=== PATIENT | female | born 1965 | race Caucasian/White ===

== ENCOUNTER 2021-01-23 01:42 | Outpatient (CLI) | payer OTHER, SELFPAY ==
--- NOTE | 2021-01-23 12:40 | DI.MAMMO_ITS ---
Exam(s) MAMMO SCREENING EXAM: MAMMO SCREENING CLINICAL HISTORY: SCREENING, Z12.39. TECHNIQUE: Bilateral full field digital CC and MLO mammographic images were obtained with 3D tomosyn thesis and utilizing computer aided detection (CAD). COMPARISON: None. Apparently prior outside mammograms are not available for comparison. This patient apparently has no breast complaints FINDINGS: There are no CAD designations There are no obvious spiculated masses nor malignant-appearing microcalcification groups in either br east. There is no significant architectural distortion nor skin thickening-retraction. IMPRESSION: No radiographic evidence of malignancy. BI-RADS Category 1 - Negative Breast Density - Category B - Scattered areas of fibroglandular density Breast density Category C or D implies that the patient has dense breast tissue. Dense breast tissue can make it harder to find cancer on a mammogram. Dense breast tissue is also associated with an incr eased risk of breast cancer. This information about the result of the mammogram report was provided to the patient to raise their awareness. Use this report when you speak with the patient about their risks for breast cancer, which includes their family history. At that time, you may recommend additional screening tests (Ultrasoun d or MRI) as these tests may add significant information. A negative radiographic report should not delay biopsy if a dominant or clinically suspicious mass is present. Up to ten percent of cancers are not identified on mammography. A negative report may reinforce clinical impression. Adenosis and dense breasts may obscure an underlying neoplasm. False positive reports average 6 to 10%. Patient will receive a letter notifying them of these results.
== END 2021-01-23 02:02 ==
PROVIDERS: Visit Provider Physician Assistant
DX: Z12.31 Encounter for screening mammogram for malignant neoplasm of breast (principal)
CPT/HCPCS: 77063; 77067

== ENCOUNTER 2021-03-30 09:29 | Outpatient (REF) | payer OTHER, SELFPAY ==
[2021-03-31 17:25] LABS: COVID-19 RT-PCR UVMMC Result Negative (Negative)
== END 2021-03-30 09:30 | disposition home or self-care (01) ==
LOC: LBN 09:29
PROVIDERS: Visit Provider Nurse Practitioner Family
DX: Z20.822 Contact with and (suspected) exposure to COVID-19 (principal); R05.8 Other specified cough
CPT/HCPCS: U0003

== ENCOUNTER 2023-07-14 15:56 | Outpatient (CLI) | payer OTHER, SELFPAY ==
--- NOTE | 2023-07-14 14:30 | DI.RAD_ITS ---
Exam(s) XR SHOULDER LT COMPLETE 2+V EXAM: XR SHOULDER LT COMPLETE 2+V CLINICAL HISTORY: LEFT SHOULDER PAIN. TECHNIQUE: 2D digital imaging was performed. COMPARISON: No exams were available for comparison FINDINGS: Two views. No evidence of fracture or dislocation nor obvious degenerative changes in the glenohumeral joint. T here is a 3 millimeter calcific density in the soft tissues just above the greater tuberosity consist ent with calcific rotator cuff tendinitis. The subacromial space itself is not diminished. There ar e some degenerative changes in the AC joint. IMPRESSION: Calcific rotator cuff tendinitis as described above. DATA REPOSITORY: RADIATION DOSE DELIVERED:
== END 2023-07-14 15:57 | disposition home or self-care (01) ==
LOC: DIORS 15:56
PROVIDERS: PCP Family Medicine; Visit Provider Student in an Organized Health Care Education/Training Program
DX: M25.512 Pain in left shoulder (principal)
CPT/HCPCS: 73030

== ENCOUNTER → 2023-08-10 03:38 | Outpatient (CLI) | payer OTHER, SELFPAY ==
--- NOTE | 2023-08-10 07:30 | DI.MRI_ITS ---
Exam(s) MR UPPER JOINT LT WO EXAM: MR UPPER JOINT LT WO CLINICAL HISTORY: PAIN,lt rotator cuff tear,impingement,tendinitis lt rotator cuff,m25.812,. TECHNIQUE: Multiplanar multisequence MRI was performed. COMPARISON: CR XR SHOULDER LT COMPLETE 2+V from 07/14/2023 FINDINGS: BONES: There is no fracture or contusion pattern. JOINTS: There are mild degenerative changes seen at the acromioclavicular joint. The glenohumeral augusto int is normal. No joint effusion. TENDONS: Supraspinatus: Mild tendinosis. No evidence of a tear. Infraspinatus: Unremarkable. Subscapularis: There is supraspinatus tendinosis but no evidence of a tear. Teres Minor: Unremarkable. Biceps and [place]: Unremarkable. MUSCLES: Unremarkable. GLENOID LABRUM: Unremarkable on this noncontrast examination. SOFT TISSUES: Unremarkable. LIGAMENTS: Unremarkable. OTHER: Subacromial and subdeltoid bursae are unremarkable. IMPRESSION: 1. Tendinosis of the supraspinatus and subscapularis tendons without evidence of a tear. 2. Mild degenerative changes seen at the acromioclavicular joint. DATA REPOSITORY:
== END ==
PROVIDERS: PCP Family Medicine; Visit Provider Student in an Organized Health Care Education/Training Program
DX: M25.812 Other specified joint disorders, left shoulder; M75.82 Other shoulder lesions, left shoulder
CPT/HCPCS: 73221

== ENCOUNTER 2024-04-11 13:12 | Outpatient (CLI) | payer OTHER, SELFPAY ==
[2024-04-11 12:30] LABS: Abs Immature Grans 0.03 10^3/uL (0.0-0.06); Absolute Basophil Count 0.04 10^3/uL (0.0-0.2); Absolute Eosinophil Count 0.23 10^3/uL (0.0-0.7); Absolute Lymphocyte Count 2.44 10^3/uL (1.2-3.4); Absolute Monocyte Count 0.34 10^3/uL (0.1-0.8); Absolute Neutrophil Count 4.83 10^3/uL (1.2-6.7); Basophils % 0.5 %; Eosinophils % 2.9 %; HGB 12.4 g/dL (11.2-15.7); Immature Grans % 0.4 %; Lymphocytes % 30.8 %; MCH 28.4 pg (27.0-33.0); MCHC 33.5 % (32.0-36.0); MCV 85 fL (80-95); MPV 10.1 fL (8.0-11.0); Monocytes % 4.3 %; Neutrophils % 61.1 %; Platelet Count 183 10^3/uL (130-400); RBC 4.36 10^6/uL (3.93-5.22); RDW 12.5 % (11.7-14.6); RDW-SD 38.5 fL; WBC 7.91 10^3/uL (4.4-10.8)
[2024-04-11 12:53] LABS: Hemoglobin A1C 5.8 % (<5.7)
[2024-04-11 13:03] LABS: ALT 13 U/L (14-59); AST 11 U/L (15-37); Albumin 3.8 g/dL (3.4-5.0); Alkaline Phosphatase 92 U/L (46-116); Anion Gap 5.6 mmol/L (3-11); BUN 10 mg/dL (7-18); Bilirubin, Total 0.25 mg/dL (0.2-1.0); CO2 30.4 mmol/L (21.0-32.0); CREATININE 0.9 mg/dL (0.55-1.02); Chloride 107 mmol/L (98-107); Estimated GFR 74.57 (mL/min/1.73m2); Glucose 127 mg/dL (74-106); Potassium 4.1 mmol/L (3.5-5.1); Sodium 143 mmol/L (136-145)
--- OUTSIDE RECORDS SUMMARY | 2024-04-11 13:14 | XMS_ITS | Continuity of Care Document ---
Author Organization [facility] Address [address] [place] [address] Care Team Providers Care Instructor Substitute Cosmetology Name Role Phone Ingrid [facility]OSPIT[facility] Primary Care Physician Encounter [facility] Date[facility]s): 07/10/23 - 07/10/23 [facility] [address] [place] [address] Encounter Diagnosis Type II diabetes mellitus uncontrolled(Discharge Diagnosis) - 07/10/23 Discharge Disposition: Home or Self Care Attending Physician: Te Pat NP Admitting Physician: Te Pat NP Referring Physician: Te Pat NP Allergies, Adverse Reactions, Alerts No Known Medication Allergies Substance Reaction Severity Status metFORMIN Mild Active Assessment and Plan Future Appointments Diagnostic Tests Pending * Hemoglobin A1c 07/10/23 Future Scheduled Tests Laboratory* Hemoglobin A1c 12/26/22 Immunizations Given and Recorded Vaccine Date Status Refusal Reason zoster vaccine, inactivated 1 05/20/21 Recorded zoster vaccine, inactivated 2 01/16/21 Recorded influenza virus vaccine, live 3 03/11/21 Recorded influenza virus vaccine, live 4 01/24/19 Recorded tetanus/diphth/pertuss (Tdap) adult/adol 5 01/16/21 Recorded SARS-CoV-2 (COVID-19) mRNA-1273 vaccine 08/12/20 R ecorded SARS-CoV-2 (COVID-19) mRNA-1273 vaccine 07/15/20 R ecorded 1Result Comment: Verified by MAGALIS and ANDERSON. Patient tolerated injection and bandaid applied. Diluent Lot# [id number] 2Result Comment: pt. tolerated vaccine well; diluent lot#[id number] 3Result Comment: Verified by RS and GGJ. Patient tolerated injection; bandaid applied. 4Result Comment: pt. tolerated vaccine well 5Result Comment: pt. tolerated vaccine well Medications Abilify 10 mg oral tablet 10 mg = 1 tab, Oral, Daily, # 30 tab, 2 Refill(s), Pharmacy: [facility] [address], 162.56, cm, 10/08/21 15:48:00 EDT, Height, 65, kg, 04/24/23 10:30:00 EST, Weight Dosing Start Date: 06/03/23 Stop Date: 09/01/23 Status: Ordered Abilify 5 mg oral tablet 5 mg = 1 tab, Oral, Daily, # 30 tab, 2 Refill(s), Pharmacy: [facility] [address], 162.56, cm, 10/08/21 15:48:00 EDT, Height, 65, kg, 04/24/23 10:30:00 EST, Weight Dosing Start Date: 06/03/23 Stop Date: 09/01/23 Status: Ordered buPROPion 150 mg/24 hours (XL) oral tablet, extended release 150 mg 1 tab, Oral, every morning, # 30 tab, 2 Refill(s), Pharmacy: [facility] [address], 162.56, cm, 10/08/21 15:48:00 EDT, Height, 65, kg, 04/24/23 10:30:00 EST, Weight Dosing Start Date: 06/03/23 Stop Date: 09/01/23 Status: Ordered buPROPion 300 mg/24 hours (XL) oral tablet, extended release 300 mg = 1 tab, Oral, every morning, # 30 tab, 2 Refill(s), Pharmacy: [facility] [address], 162.56, cm, 10/08/21 15:48:00 EDT, Height, 65, kg, 04/24/23 10:30:00 EST, Weight Dosing Start Date: 06/03/23 Stop Date: 09/01/23 Status: Ordered citalopram 10 mg oral tablet 10 mg = 1 tab, Oral, Daily, take at noon, with citalopram 20 mg daily, # 30 tab, 2 Refill(s), Pharmacy: [facility] [address], 162.56, cm, 10/08/21 15:48:00 EDT, Height, 65, kg, 04/24/23 10:30:00 EST, Weight Dosing Start Date: 06/03/23 Stop Date: 09/01/23 Status: Ordered citalopram 20 mg oral tablet 20 mg = 1 tab, Oral, every morning, # 30 tab, 2 Refill(s), Pharmacy: [facility] [address], 162.56, cm, 10/08/21 15:48:00 EDT, Height, 65, kg, 04/24/23 10:30:00 EST, Weight Dosing Start Date: 06/03/23 Stop Date: 09/01/23 Status: Ordered clonazePAM 0.5 mg oral tablet 0.5 mg = 1 tab, Oral, Daily, PRN anxiety, # 14 tab, 1 Refill(s), Pharmacy: [place] [facility] [address], 162.56, cm, 10/08/21 15:48:00 EDT, Height, 65, kg, 04/24/23 10:30:00 EST, Weight Dosing Start Date: 06/03/23 Stop Date: 07/01/23 Status: Ordered clonazePAM 1 mg oral tablet 1 mg = 1 tab, Oral, Daily, PRN other (see comment), as needed, # 28 tab, 2 Refill(s), Pharmacy: [place] [facility] [address], 162.56, cm, 10/08/21 15:48:00 EDT, Height, 65, kg, 04/24/23 10:30:00 EST, Weight Dosing Start Date: 06/29/23 Stop Date: 09/21/23 Status: Ordered lamoTRIgine 100 mg oral tablet 100 mg = 1 tab, Oral, Daily, # 30 tab, 2 Refill(s), Pharmacy: [place] [facility] [id number], 162.56, cm, 10/08/21 15:48:00 EDT, Height, 65, kg, 04/24/23 10:30:00 EST, Weight Dosing Start Date: 06/03/23 Stop Date: 09/01/23 Status: Ordered ONE TOUCH ULTRA TEST STRIPS ONE TOUCH ULTRA TEST STRIPS, Test sugars twice daily. E11.9 Diabetes., Supply, See instructions, # 200 EA, 3 Refill(s), Pharmacy: [id number] Start Date: 12/10/22 Status: Ordered Rybelsus 7 mg oral tablet 7 mg = 1 tab, Oral, Daily, take at least 30 minutes before first food, beverage, or other oral meds, # 90 tab, 0 Refill(s), Pharmacy: [facility], 162.56, cm, 10/08/21 15:48:00 EDT, Height, 65, kg, 04/24/23 10:30:00 EST, Weight Dosing Start Date: 05/06/23 Status: Ordered traZODone 100 mg oral tablet 100 mg = 1 tab, Oral, every night at bedtime, PRN as need for sleep, # 30 tab, 2 Refill(s), Pharmacy: [id number], 162.56, cm, 10/08/21 15:48:00 EDT, Height, 65, kg, 04/24/23 10:30:00 EST, Weight Dosing Start Date: 05/19/23 Stop Date: 08/17/23 Status: Ordered Problem List Condition Confirmation Course Effective Dates Status H ealth Status Informant Anemia Confirmed Active Attention deficit hyperactivity disorder Confirmed 06/01/19 Active Back pain Confirmed Active Bipolar disorder Confirmed 10/08/17 Active Fatigue Confirmed Active Insomnia Confirmed 03/10/18 Active Menopause Confirmed 01/16/21 Active Pain of right shoulder joint Confirmed 12/13/19 Active Encounter for medication management Confirmed Active Right bundle branch block Confirmed 07/21/19 Active Severe anxiety (panic) Confirmed 05/21/21 Active Tremor Confirmed 06/06/19 Active Type II diabetes mellitus uncontrolled Confirmed 07/21/19 Active Social History Social History Type Response Tobacco Never tobacco user T obacco Use:. Sex Female Patient Care team information Care Team Personnel Name: Lee Sheehan DO Position: PowerChart View Only Member Role: Informed Provider Address: Address: [place] [facility] [id number] [place] [address]
--- OUTSIDE RECORDS SUMMARY | 2024-04-11 13:15 | XMS_ITS | Continuity of Care Document ---
Author Organization [facility] Address [address] [place] [address] Care Team Providers Care Bead Inspector Name Role Phone Lee Sheehan Primary Care Physician [phone] Encounter [facility] Date(s): 04/24/23 - 04/24/23 [facility] [address] [place] [address] Encounter Diagnosis Type II diabetes mellitus uncontrolled(Discharge Diagnosis) - 04/24/23 Encounter for medication management(Discharge Diagnosis) - 04/24/23 Back pain(Discharge Diagnosis) - 04/24/23 Severe anxiety (panic)(Discharge Diagnosis) - 04/24/23 Discharge Disposition: Home or Self Care Attending Physician: Jacquelyn Phillips NP Admitting Physician: Jacquelyn Phillips NP Referring Physician: Jacquelyn Phillips NP Allergies, Adverse Reactions, Alerts No Known Medication Allergies Substance Reaction Severity Status metFORMIN Mild Active Assessment and Plan Future Appointments Future Scheduled Tests Laboratory* Hemoglobin A1c 12/26/22 [...] lot#[id number] 3Result Comment: Verified by RS and JOEYJ. Patient tolerated injection; bandaid applied. 4Result Comment: pt. tolerated vaccine well 5Result Comment: pt. tolerated vaccine well Medications Abilify 10 mg oral tablet 10 mg = 1 tab, Oral, Daily, # 30 tab, 2 Refill(s), Pharmacy: [facility] Start Date: 02/18/23 Stop Date: 05/19/23 Status: Ordered Abilify 5 mg oral tablet 5 mg = 1 tab, Oral, Daily, # 30 tab, 2 Refill(s), Pharmacy: [id number] Start Date: 02/18/23 Stop Date: 05/19/23 Status: Ordered buPROPion 150 mg/24 hours (XL) oral tablet, extended release 150 mg 1 tab, Oral, every morning, # 30 tab, 2 Refill(s), Pharmacy: [id number] Start Date: 02/18/23 Stop Date: 05/19/23 Status: Ordered buPROPion 300 mg/24 hours (XL) oral tablet, extended release 300 mg = 1 tab, Oral, every morning, # 30 tab, 2 Refill(s), Pharmacy: [facility] Start Date: 02/18/23 Stop Date: 05/19/23 Status: Ordered citalopram 20 mg oral tablet 20 mg = 1 tab, Oral, every morning, # 30 tab, 2 Refill(s), Pharmacy: [facility] Start Date: 02/18/23 Stop Date: 05/19/23 Status: Ordered clonazePAM 0.5 mg oral tablet 0.5 mg = 1 tab, Oral, Daily, PRN anxiety, # 14 tab, 1 Refill(s), Pharmacy: [facility] Start Date: 02/18/23 Stop Date: 03/18/23 Status: Ordered clonazePAM 1 mg oral tablet 1 mg = 1 tab, Oral, Daily, PRN other (see comment), as needed, # 28 tab, 2 Refill(s), Pharm[facility]: [id number] Start Date: 02/18/23 Stop Date: 05/13/23 Status: Ordered FeroSul 325 mg (65 mg elemental iron) oral tablet 0 Refill(s) Start Date: 07/18/22 Status: Ordered lamoTRIgine 100 mg oral tablet 100 mg = 1 tab, Oral, Daily, # 30 tab, 2 Refill(s), Pharmacy: [facility] Start Date: 02/18/23 Stop Date: 05/19/23 Status: Ordered ONE TOUCH ULTRA TEST STRIPS ONE TOUCH ULTRA TEST STRIPS, Test sugars twice daily. E11.9 Diabetes., Supply, See instructions, # 200 EA, 3 Refill(s), Pharmacy: [facility] Start Date: 12/10/22 Status: Ordered traZODone 100 mg oral tablet 100 mg = 1 tab, Oral, every night at bedtime, PRN as need for sleep, # 30 tab, 2 Refill(s), Pharmacy: [facility], 162.56, cm, 10/08/21 15:48:00 EDT, Height Start Date: 02/23/23 Stop Date: 05/24/23 Status: Ordered Problem List Condition Confirmation Course [...] II diabetes mellitus uncontrolled Confirmed 07/21/19 Active Results Laboratory List Name Date Comprehensive Metabolic Panel (CMP) 03/28 01/17 Hemoglobin A1c 04/24/23 Most recent to oldest [Reference Range]: 1 BUN [7-18 mg/dL] 9 mg/dL (04/24/23 11:00 AM) Glucose Level [74-106 mg/dL] 120 mg/dL *HI* (04/24/23 11:00 AM) Potassium Level [3.5-5.1 mmol/L] 4.2 mmo l/L (04/24/23 11:00 AM) AST [15-37 unit/L] 11 unit/L *LOW* (04/24/23 11:00 AM) ALT [14-59 unit/L] 19 unit/L (04/24/23 11:00 AM) Sodium Level [136-145 mmol/L] 140 mmol/L (04/24/23 11:00 AM) Calcium Level [8.5-10.1 mg/dL] 9.4 mg/dL (04/24/23 11:00 AM) Albumin Level [3.4-5.0 g/dL] 3.6 g/dL (04/24/23 11:00 AM) Protein Total [6.4-8.2 g/dL] 6.9 g/dL (04/24/23 11:00 AM) Bilirubin Total [0.2-1.0 mg/dL] 0.3 mg/d L (04/24/23 11:00 AM) Alk Phos [46-146 unit/L] 68 unit/L (04/24/23 11:00 AM) CO2 [21-32 mmol/L] 30 mmol/L (04/24/23 11:00 AM) eGFR Non-AA [>=60] 74 (04/24/23 11:00 AM) eGFR AA [>=60] 74 (04/24/23 11:00 AM) Hemoglobin A1c [4.0-6.0 %] 5.9 % (04/24/23 11:00 AM) Chloride Level [98-107 mmol/L] 103 mmol/ L (04/24/23 11:00 AM) Creatinine Level [0.55-1.02 mg/dL] 0.91 mg/dL (04/24/23 11:00 AM) Social History Social History Type Response Tobacco Never tobacco user T obacco Use:. Sex Female Patient Care team information Care Team Personnel Name: Lee Sheehan DO Position: PowerChart View Only Member Role: Informed Provider Address: Address: [place] [facility] [address]
--- OUTSIDE RECORDS SUMMARY | 2024-04-11 13:15 | XMS_ITS | Continuity of Care Document ---
Author Organization [facility] Address [address] [place] [address] Care Team Providers Care Aed Trainer Name Role Phone Lee Quintero Primary Care Physician [facility] Date[facility]s): [facility]/22 - 12/16/22 [facility] [address] [place] [address] Discharge Disposition: Home or Self Care Attending Physician: Rafaela Xiong DNP Admitting Physician: Rafaela Xinog DNP Referring Physician: Rafaela Xiong DNP Allergies, Adverse Reactions, Alerts No Known Medication Allergies Assessment and Plan Future Appointments Future Scheduled [...] 07/15/20 R ecorded 1Result Comment: Verified by DG and ANDERSON. Patient tolerated injection and bandaid applied. Diluent Lot# [id number] 2Result Comment: pt. tolerated vaccine well; diluent lot#[id number] 3Result Comment: Verified by RS and GGJ. Patient tolerated injection; bandaid applied. 4Result Comment: pt. tolerated vaccine well 5Result Comment: pt. tolerated vaccine well Medications Abilify 10 mg oral tablet 10 mg = 1 tab, Oral, Daily, # 30 tab, 2 Refill(s), Pharmacy: [place] [id number] Start Date: 12/16/22 Stop Date: 03/16/23 Status: Ordered buPROPion 150 mg/24 hours (XL) oral tablet, extended release 150 mg 1 tab, Oral, every morning, # 30 tab, 2 Refill(s), Pharmacy: [id number] Start Date: 12/16/22 Stop Date: 03/16/23 Status: Ordered buPROPion 300 mg/24 hours (XL) oral tablet, extended release 300 mg = 1 tab, Oral, every morning, # 30 tab, 2 Refill(s), Pharmacy: [id number] Start Date: 12/16/22 Stop Date: 03/16/23 Status: Ordered citalopram 20 mg oral tablet 20 mg = 1 tab, Oral, every morning, # 30 tab, 2 Refill(s), Pharmacy: [id number] Start Date: 10/30/22 Status: Ordered clonazePAM 0.5 mg oral tablet 0.5 mg = 1 tab, Oral, Daily, PRN anxiety, # 14 tab, 1 Refill(s), Pharmacy: [id number] Start Date: 12/16/22 Stop Date: 01/13/23 Status: Ordered clonazePAM 1 mg oral tablet 1 mg = 1 tab, Oral, Daily, PRN other (see comment), as needed, # 28 tab, 2 Refill(s), Pharmacy: [place] [id number] Start Date: 12/16/22 Stop Date: 03/10/23 Status: Ordered FeroSul 325 mg (65 mg elemental iron) oral tablet 0 Refill(s) Start Date: 07/18/22 Status: Ordered lamoTRIgine 100 mg oral tablet 100 mg = 1 tab, Oral, Daily, # 30 tab, 2 Refill(s), Pharmacy: [facility] [address] Start Date: 12/16/22 Stop Date: 03/16/23 Status: Ordered ONE TOUCH ULTRA TEST STRIPS ONE TOUCH ULTRA TEST STRIPS, Test sugars twice daily. E11.9 Diabetes., Supply, See instructions, # 200 EA, 3 Refill(s), Pharmacy: [facility] Start Date: 12/10/22 Status: Ordered Rybelsus 3 mg oral tablet 1 tab, Oral, Daily, OR MEDICATIONS OF DAY., # 30 tab, 3 Refill(s), Pharmacy: [facility] Start Date: 10/08/22 Status: Ordered Rybelsus 7 mg oral tablet 7 mg = 1 tab, Oral, Daily, take at least 30 minutes before first food, beverage, or other oral meds, # 30 tab, 3 Refill(s), Pharmacy: [facility] Start Date: 12/03/22 Status: Ordered traZODone 100 mg oral tablet 100 mg = 1 tab, Oral, every night at bedtime, PRN as need for sleep, # 30 tab, 2 Refill(s), Pharmacy: [facility] Start Date: 11/20/22 Stop Date: 02/18/23 Status: Ordered Problem List Condition Confirmation Course [...] 07/21/19 Active Results Laboratory List Name Date Drug Screen Urine (Drug Screen Urine w/ Reflex) 12/16/22 Most recent to oldest [Reference Range]: 1 U Amph Scrn [Negative] Negative 1 (12/16/22 2:41 PM) U Benzodia Scrn [Negative] Negative (12/16/22 2:41 PM) U Cocaine Scrn [Negative] Negative (12/16/22 2:41 PM) U Cristina Scrn [Negative] Negative (12/16/22 2:41 PM) U Opiate Scrn [Negative] Negative (12/16/22 2:41 PM) U Oxy Scrn [Negative] Negative (12/16/22 2:41 PM) U PCP Scrn [Negative] Negative (12/16/22 2:41 PM) U THC Scr [Negative] Negative (12/16/22 2:41 PM) U PPX Scr [Negative] Negative (12/16/22 2:41 PM) U Methadone Scr [Negative] Negative (12/16/22 2:41 PM) U Buprenorph Scr [Negative] Negative (12/16/22 2:41 PM) U mAMP Scr [Negative] Negative (12/16/22 2:41 PM) U TCA Scr [Negative] Negative (12/16/22 2:41 PM) 1Interpretive Data: These are unconfirmed screening results, to be used only for medical (i.e. treatment) purposes. These screening results must not be used for non-medical purposes (e.g. employment or legal testing). New method started 10/31/10 Test Name Reference Range (Cut-off) THC Neg (50 ng/mL) PCP Neg (25 ng/mL) ADELINE Neg (150 ng/mL) MET Neg (500 ng/mL OPI Neg (100 ng/mL) AMP Neg (500 ng/mL BZO Neg (150 ng/mL) TCA Neg (300 ng/mL) MTD Neg (200 ng/mL) BAR Neg (200 ng/mL) OXY Neg (100 ng/mL) PPX Neg (300 ng/mL) BUP Neg (10 ng/mL) Social History Social History Type Response Tobacco Never tobacco user T obacco Use:. Sex Female Patient Care team information Care Team Personnel Name: Lee Quintero DO Position: Physician Member Role: Informed Provider Address: Address: [place] [facility] [address]
--- OUTSIDE RECORDS SUMMARY | 2024-04-11 13:16 | XMS_ITS | Continuity of Care Document ---
Author Organization [facility] Address [address] [place] [address] Care Team Providers Care Director Of Consulting Services Name Role Phone Lee Quintero Primary Care Physician Encounter NCTY_[place] Date(s): 06/26/22 - 06/26/22 [facility] [address] [place] [address] Encounter Diagnosis Type II diabetes mellitus uncontrolled(Discharge Diagnosis) - 06/26/22 Hx of iron deficiency anemia(Discharge Diagnosis) - 06/26/22 Fatigue(Discharge Diagnosis) - 06/26/22 Discharge Disposition: Home or Self Care Attending Physician: Lee Quintero DO Admitting Physician: Lee Quintero DO Allergies, Adverse Reactions, Alerts No Known Medication Allergies Assessment and Plan Future Appointments Diagnostic Tests Pending * Generic Orderable QUINCY/WARE 06/26/22 Future Scheduled Tests Laboratory* Hemoglobin A1c 01/10/22 Immunizations Given and Recorded Vaccine Date Status Refusal Reason zoster vaccine, inactivated 1 05/20/21 Recorded zoster vaccine, inactivated 2 01/16/21 Recorded influenza virus vaccine, live 3 03/11/21 Recorded influenza virus vaccine, live 4 01/24/19 Recorded tetanus/diphth/pertuss (Tdap) adult/adol 5 01/16/21 Recorded SARS-CoV-2 (COVID-19) mRNA-1273 vaccine 08/12/20 R ecorded SARS-CoV-2 (COVID-19) mRNA-1273 vaccine 07/15/20 R ecorded 1Result Comment: Verified by DG and JOEYJ. Patient tolerated injection and bandaid applied. Diluent Lot# [id number] 2Result Comment: pt. tolerated vaccine well; diluent lot#[id number] 3Result Comment: Verified by RS and JOEYJ. Patient tolerated injection; bandaid applied. 4Result Comment: pt. tolerated vaccine well 5Result Comment: pt. tolerated vaccine well Medications ARIPiprazole 20 mg oral tablet 20 mg = 1 tab, Oral, every morning, # 30 tab, 2 Refill(s), Pharmacy: [place] [id number] Start Date: 04/07/22 Stop Date: 07/06/22 Status: Ordered buPROPion 150 mg/24 hours (XL) oral tablet, extended release 150 mg 1 tab, Oral, every morning, # 30 tab, 2 Refill(s), Pharmacy: [place] [id number] Start Date: 04/07/22 Stop Date: 07/06/22 Status: Ordered buPROPion 300 mg/24 hours (XL) oral tablet, extended release 300 mg = 1 tab, Oral, every morning, # 30 tab, 2 Refill(s), Pharmacy: [place] [id number] Start Date: 04/07/22 Stop Date: 07/06/22 Status: Ordered citalopram 20 mg oral tablet 20 mg = 1 tab, Oral, every morning, # 30 tab, 2 Refill(s), Pharmacy: [place] [id number] Start Date: 04/07/22 Stop Date: 07/06/22 Status: Ordered clonazePAM 1 mg oral tablet 1 mg = 1 tab, Oral, Daily, PRN other (see comment), as needed, # 28 tab, 2 Refill(s), Pharmacy: [place] [id number] Start Date: 04/07/22 Stop Date: 06/30/22 Status: Ordered fluconazole 150 mg oral tablet 7 EA, TAKE 1 TABLET BY MOUTH ONCE WEEKLY FOR 3 MONTHS AFTER INITIAL 3 DAY TREATMENT MAY EXTEND TO 6MONTHS, 0 Refill(s) Start Date: 06/19/22 Status: Ordered lamoTRIgine 100 mg oral tablet 100 mg = 1 tab, Oral, Daily, # 30 tab, 2 Refill(s), Pharmacy: [place] [id number] Start Date: 04/07/22 Stop Date: 07/06/22 Status: Ordered Misc Prescription See Instructions, [place] 3 with EPA/DHA 500 mg daily per Rafaela Cai DNP, 0 Refill(s) Start Date: 04/02/22 Status: Ordered semaglutide 3 mg oral tablet 3 mg = 1 tab, Oral, Daily, take at least 30 minutes before first food, beverage, or other oral meds, # 30 tab, 0 Refill(s), Pharmacy: [facility] Start Date: 06/26/22 Status: Ordered traZODone 100 mg oral tablet 100 mg = 1 tab, Oral, every night at bedtime, PRN as need for sleep, # 30 tab, 2 Refill(s), Pharmacy: [facility] Start Date: 04/07/22 Stop Date: 07/06/22 Status: Ordered Problem List Condition Confirmation Course Effective Dates Status H ealth Status Informant Attention deficit hyperactivity disorder Confirmed 06/01/19 Active Bipolar disorder Confirmed 10/08/17 Active Insomnia Confirmed 03/10/18 Active Menopause Confirmed 01/16/21 Active Pain of right shoulder joint Confirmed 12/13/19 Active Encounter for medication management Confirmed Active Right bundle branch block Confirmed 07/21/19 Active Severe anxiety (panic) Confirmed 05/21/21 Active Tremor Confirmed 06/06/19 Active Type II diabetes mellitus uncontrolled Confirmed 07/21/19 Active Results Laboratory List Name Date CBC w/ Diff 06/26/22 Comprehensive Metabolic Panel (CMP) Ferritin 06/26/22 Hemoglobin A1c 06/26/22 Iron Level 06/26/22 Microalbumin/Creatinine Ratio Urine Automated Diff 06/26/22 Most recent to oldest [Reference Range]: 1 WBC [5.0-10.0 x10^3/mcL] 7.0 x10^3/mcL (06/26/22 3:34 PM) RBC [4.1-5.3 x10^6/mcL] 4.6 x10^6/mcL (06/26/22 3:34 PM) Neutro Auto [40.0-75.0 %] 58.0 % (06/26/22 3:34 PM) Lymph Auto [20.0-50.0 %] 33.0 % (06/26/22 3:34 PM) [place] Auto [2.0-15.0 %] 5.3 % (06/26/22 3:34 PM) Basophil Auto [0.0-1.0 %] 0.4 % (06/26/22 3:34 PM) BUN [7-18 mg/dL] 11 mg/dL (06/26/22 3:34 PM) Glucose Level [74-106 mg/dL] 292 mg/dL *HI* (06/26/22 3:34 PM) Potassium Level [3.5-5.1 mmol/L] 4.3 mmo l/L (06/26/22 3:34 PM) MCV [80.0-96.0] 85.1 (06/26/22 3:34 PM) AST [15-37 unit/L] 23 unit/L (06/26/22 3:34 PM) ALT [14-59 unit/L] 40 unit/L (06/26/22 3:34 PM) MCHC [31.0-35.0 g/dL] 33.5 g/dL (06/26/22 3:34 PM) Sodium Level [136-145 mmol/L] 139 mmol/L (06/26/22 3:34 PM) Hct [37.0-47.0 %] 39.4 % (06/26/22 3:34 PM) Calcium Level [8.5-10.1 mg/dL] 9.6 mg/dL (06/26/22 3:34 PM) Albumin Level [3.4-5.0 g/dL] 4.1 g/dL (06/26/22 3:34 PM) Protein Total [6.4-8.2 g/dL] 7.4 g/dL (06/26/22 3:34 PM) MCH [26.0-32.0 pg] 28.5 pg (06/26/22 3:34 PM) Neutro Absolute 4.0 x10^3/mcL *NA* (06/26/22 3:34 PM) Bilirubin Total [0.2-1.0 mg/dL] 0.3 mg/d L (06/26/22 3:34 PM) Hgb [12.0-16.0 g/dL] 13.2 g/dL (06/26/22 3:34 PM) Alk Phos [46-146 unit/L] 88 unit/L (06/26/22 3:34 PM) Ferritin Level [8-252 ng/mL] 77 ng/mL (3/2/23 3:34 PM) Platelets [130-450 x10^3/mcL] 197 x10^3/ mcL (06/26/22 3:34 PM) CO2 [21-32 mmol/L] 30 mmol/L (06/26/22 3:34 PM) Iron [50-170 mcg/dL] 43 mcg/dL *LOW* (06/26/22 3:34 PM) eGFR Non-AA [>=60] 74 (06/26/22 3:34 PM) eGFR AA [>=60] 74 (06/26/22 3:34 PM) U Creatinine [30-125 mg/dL] 54 mg/dL (06/26/22 3:34 PM) Hemoglobin A1c [4.0-6.0 %] SENT TO [facility] % *NA* (06/26/22 3:34 PM) Chloride Level [98-107 mmol/L] 102 mmol/ L (06/26/22 3:34 PM) RDW-CV [11.7-17.0 %] 13.0 % (06/26/22 3:34 PM) U Microalb/Creat [0.0-30.0 mcg/mg] <2.4 mcg/mg (06/26/22 3:34 PM) U Microalb [0.0-20.0] <1.3 (06/26/22 3:34 PM) Imm Gran Auto [0.0-0.9 %] 0.3 % (06/26/22 3:34 PM) Creatinine Level [0.55-1.02 mg/dL] 0.92 mg/dL (06/26/22 3:34 PM) Eos, Auto [1.0-6.0 %] 3.0 % (06/26/22 3:34 PM) Social History Social History Type Response Tobacco Never tobacco user T obacco Use:. Sex Female Patient Care team information Care Team Personnel Name: Lee Quintero DO Position: Physician Member Role: Primary Care Physician Address: Address: [place] [facility] [address]
--- OUTSIDE RECORDS SUMMARY | 2024-04-11 13:16 | XMS_ITS | Encounter Summary ---
Author Organization [facility] Address [address] [place] [address] Care Team Providers Care Airport Operations Coordinator Name Role Phone Unavailable Primary Care Provider Unavailabl e Encounter Details Date Type Department Care Team (Late st Contact Info) Description 06/26/2022 Lab Requisition [facility] Pathology & Laboratory Medicine - [facility] [address] [place] [address] Outr Resulting Lab, Provider Social History Tobacco Use Types Packs/Day Years Used Date Smoking Tobacco: Never Assessed Interpersonal Safety Answer Date Record ed Physically Hurt Never 10/04/2020 Verbally Threaten Not on file 10/04/2020 Comments Unknown Sex and Gender Information Value Date Recorded Sex Assigned at Not on file Legal Sex Female 17:14 EDT Gender Identity Not on file Sexual Orientation Not on file documented as of this encounter Plan of Treatment Not on file documented as of this encounter Procedures Procedure Name Priority Date/Time Associated Diagnosis Comments HEMOGLOBIN A1C Routine 06/26/2022 15:34 EST documented in this encounter Results * (ABNORMAL) HEMOGLOBIN A1C (06/26/2022 15:34 EST) Hemoglobin A1c 10.5(H) <5.7 % 06/27/2022 12:05 [facility] Comment: Glycemic Status References: Normal: ??<5.7% Pre-Diabetes: ??5.7% - 6.4% Diagnostic of Diabetes: ??> or = 6.5% (if confirmed) Est Avg Glucose 255 mg/dL 12:05 [facility] Comment:The eAG represents t he A1c result expressed as average glucose in mg/dL. Blood VENOUS BLOOD / Unknown 06/26/2022 15:34 EST 06/26/2022 22:45 EST us Provider Outr Resulting Lab CHEMISTRY & BLOOD GA S ORDERABLES Final Result [facility] [address] [place] [address] documented in this encounter Visit Diagnoses Not on filedocumented in this encounter
--- OUTSIDE RECORDS SUMMARY | 2024-04-11 13:16 | XMS_ITS | Continuity of Care Document ---
Author Organization [facility] Address [address] [place] [address] Care Team Providers Care Surgical Technologist Name Role Phone Lee Sheehan Primary Care Physician Encounter NCTY_[place] Date(s): 02/18/23 - 02/18/23 [facility] [address] [place] [address] Discharge Disposition: Home or Self Care Attending Physician: Rafaela Xiong DNP Admitting Physician: Rafaela Xiong DNP Allergies, Adverse Reactions, [...] ecorded 1Result Comment: Verified by DG and GGJ. Patient tolerated injection and bandaid applied. Diluent Lot# [id number] 2Result Comment: pt. tolerated vaccine well; diluent lot#[id number] 3Result Comment: Verified by RS and GGJ. Patient tolerated injection; bandaid applied. 4Result Comment: pt. tolerated vaccine well 5Result Comment: pt. tolerated vaccine well Medications Abilify 10 mg oral tablet 10 mg = 1 tab, Oral, Daily, # 30 tab, 2 Refill(s), Pharmacy: [place] [id number] Start Date: 02/18/23 Stop Date: 05/19/23 Status: Ordered Abilify 5 mg oral tablet 5 mg = 1 tab, Oral, Daily, # 30 tab, 2 Refill(s), Pharmacy: [id number] Start Date: 02/18/23 Stop Date: 05/19/23 Status: Ordered buPROPion 150 mg/24 hours (XL) oral tablet, extended release 150 mg 1 tab, Oral, every morning, # 30 tab, 2 Refill(s), Pharmacy: [facility] ([id number] Start Date: 02/18/23 Stop Date: 05/19/23 Status: Ordered buPROPion 300 mg/24 hours (XL) oral tablet, extended release 300 mg = 1 tab, Oral, every morning, # 30 tab, 2 Refill(s), Pharmacy: [facility] ([id number] Start Date: 02/18/23 Stop Date: 05/19/23 Status: Ordered citalopram 20 mg oral tablet 20 mg = 1 tab, Oral, every morning, # 30 tab, 2 Refill(s), Pharmacy: [facility] ([id number] Start Date: 02/18/23 Stop Date: 05/19/23 Status: Ordered clonazePAM 0.5 mg oral tablet 0.5 mg = 1 tab, Oral, Daily, PRN anxiety, # 14 tab, 1 Refill(s), Pharmacy: [facility] ([id number] Start Date: 02/18/23 Stop Date: 03/18/23 Status: Ordered clonazePAM 1 mg oral tablet 1 mg = 1 tab, Oral, Daily, PRN other (see comment), as needed, # 28 tab, 2 Refill(s), Pharmacy: [place] [id number] Start Date: 02/18/23 Stop Date: 05/13/23 Status: Ordered FeroSul 325 mg (65 mg elemental iron) oral tablet 0 Refill(s) Start Date: 07/18/22 Status: Ordered lamoTRIgine 100 mg oral tablet 100 mg = 1 tab, Oral, Daily, # 30 tab, 2 Refill(s), Pharmacy: [facility] [address] Start Date: 02/18/23 Stop Date: 05/19/23 Status: Ordered ONE TOUCH ULTRA TEST STRIPS ONE TOUCH ULTRA TEST STRIPS, Test sugars twice daily. E11.9 Diabetes., Supply, See instructions, # 200 EA, 3 Refill(s), Pharmacy: [facility] Start Date: 12/10/22 Status: Ordered Rybelsus 7 mg oral tablet 7 mg = 1 tab, Oral, Daily, take at least 30 minutes before first food, beverage, or other oral meds, # 30 tab, 3 Refill(s), Pharmacy: [facility] Start Date: 12/03/22 Status: Ordered traZODone 100 mg oral tablet 100 mg = 1 tab, Oral, every night at bedtime, PRN as need for sleep, # 30 tab, 2 Refill(s), Pharmacy: [facility] Start Date: 11/20/22 Stop Date: 02/18/23 Status: [...] Screen Urine (Drug Screen Urine w/ Reflex) 02/18/23 Most recent to oldest [Reference Range]: 1 U Amph Scrn [Negative] Negative 1 (02/18/23 4:06 PM) U Benzodia Scrn [Negative] Negative (02/18/23 4:06 PM) U Cocaine Scrn [Negative] Negative (02/18/23 4:06 PM) U Cristina Scrn [Negative] Negative (02/18/23 4:06 PM) U Opiate Scrn [Negative] Negative (02/18/23 4:06 PM) U Oxy Scrn [Negative] Negative (02/18/23 4:06 PM) U PCP Scrn [Negative] Negative (02/18/23 4:06 PM) U THC Scr [Negative] Negative (02/18/23 4:06 PM) U Methadone Scr [Negative] Negative (02/18/23 4:06 PM) U Buprenorph Scr [Negative] Negative (02/18/23 4:06 PM) U mAMP Scr [Negative] Negative (02/18/23 4:06 PM) U TCA Scr [Negative] Negative (02/18/23 4:06 PM) 1Interpretive Data: These are unconfirmed screening [...] Care team information Care Team Personnel Name: Ingrid [facility] Position: PowerChart View Only Member Role: Informed Provider Address: Address: [place] Primary [address]
--- OUTSIDE RECORDS SUMMARY | 2024-04-11 13:16 | XMS_ITS | Encounter Summary ---
Author Organization [facility] Address [address] [place] [address] Care Team Providers Care Loan Administrator Name Role Phone Unavailable Primary Care Provider Unavailabl e Encounter Details Date Type Department Care Team (Late st Contact Info) Description 03/30/2021 Lab Requisition [facility] Pathology & Laboratory Medicine - [facility] [address] [place] [address] Outr Resulting Lab, Provider Social History Tobacco [...] Procedure Name Priority Date/Time Associated Diagnosis Comments ZZCOVID-19 TEST [facility] PCR Today 03/30/2021 9:15 EST COVID-19 TESTING Routine 03/30/2021 9:15 EST documented in this encounter Results * COVID-19 TEST [facility] PCR (03/30/2021 9:15 EST) Swab 03/30/2021 9:15 EST 03/30/2021 22:29 EST us Provider Outr Resulting Lab MICROBIOLOGY - GENER AL ORDERABLES Final Result [facility] [address] [place] [address] * COVID-19 TESTING (03/30/2021 9:15 EST) COVID-19 rt-PCR Result Negative Negative 03/31/2021 17:21 EST [facility] Comment: This test has not been FDA cleared or approved. This test has been authorized by FDA under an EUA for use by authorized laboratories. This test has been authorized only for detection of nucleic acid from 2019-nCoV, not for any other viruses or pathogens. This test is only authorized for the duration of the declaration that circumstances exist justifying the authorization of emergency use of in vitro diagnostic tests for detection and/or diagnosis of 2019-nCoV under section 564(b)(1) of Act, 21 U.S.C ?? 360bbb-3(b) (1), unless the authorization is terminated or revoked sooner. Negative results do not preclude 2019-nCoV infection and should not be used as the sole basis for treatment or other patient management decisions. Negative results must be combined with clinical observations, patient history, and epidemiological information. Performed on the SensorTran Fusion instrument Performing Lab [place] [facility] Lab 03/31/2021 17:21 EST [facility] Swab 03/30/2021 9:15 EST 03/30/2021 22:29 EST us Provider Outr Resulting Lab MICROBIOLOGY - GENER AL ORDERABLES Final Result [facility] [address] [place] [address] documented in this encounter Visit Diagnoses Not on filedocumented in this encounter
--- OUTSIDE RECORDS SUMMARY | 2024-04-11 13:16 | XMS_ITS | Continuity of Care Document ---
Author Organization [facility] Address [address] [place] [address] Care Team Providers Care Instructor Hairspring Name Role Phone Lee Sheehan Primary Care Physician [phone] Encounter NCTY_[place] Date(s): 01/27/24 - 01/27/24 [facility] [address] [place] [address] Discharge Disposition: Home or Self Care Attending Physician: Rafaela Xiong DNP Admitting Physician: Rafaela Xiong DNP Referring Physician: Rafaela Xiong DNP Allergies, Adverse Reactions, Alerts No Known Medication Allergies Substance Criticality Severity Reaction Reaction Severity Status metFORMIN Low criticality Mild Acti ve Assessment and Plan Future Appointments Future Scheduled Tests Laboratory* CBC w/ Diff 10/20/23 * Comprehensive Metabolic Panel 10/20/23 * Hemoglobin A1c 10/20/23 Immunizations Given and Recorded Vaccine Date Status [...] 1 tab, Oral, Daily, # 30 tab, 5 Refill(s), Pharmacy: [place] [address], 65.15, kg, 01/27/24 11:27:00 EDT, Weight Dosing Start Date: 01/27/24 Stop Date: 07/25/24 Status: Ordered Abilify 5 mg oral tablet 5 mg = 1 tab, Oral, Daily, # 30 tab, 0 Refill(s), Pharmacy: [place] [id number], 63.35, kg, 10/20/23 11:06:00 EDT, Weight Dosing Start Date: 01/19/24 Stop Date: 02/18/24 Status: Ordered buPROPion 150 mg/24 hours (XL) oral tablet, extended release 150 mg 1 tab, Oral, every morning, # 30 tab, 5 Refill(s), Pharmacy: [place] [address], 65.15, kg, 01/27/24 11:27:00 EDT, Weight Dosing Start Date: 01/27/24 Stop Date: 07/25/24 Status: Ordered buPROPion 300 mg/24 hours (XL) oral tablet, extended release 300 mg = 1 tab, Oral, every morning, # 30 tab, 5 Refill(s), Pharmacy: [place] [address], 65.15, kg, 01/27/24 11:27:00 EDT, Weight Dosing Start Date: 01/27/24 Stop Date: 07/25/24 Status: Ordered citalopram 10 mg oral tablet 10 mg = 1 tab, Oral, Daily, take at noon, with citalopram 20 mg daily, # 30 tab, 5 Refill(s), Pharmacy: [place] [address], 65.15, kg, 01/27/24 11:27:00 EDT, Weight Dosing Start Date: 01/27/24 Stop Date: 07/25/24 Status: Ordered citalopram 20 mg oral tablet 20 mg = 1 tab, Oral, every morning, # 30 tab, 5 Refill(s), Pharmacy: [place] [address], 65.15, kg, 01/27/24 11:27:00 EDT, Weight Dosing Start Date: 01/27/24 Stop Date: 07/25/24 Status: Ordered clonazePAM 0.5 mg oral tablet 0.5 mg = 1 tab, Oral, Daily, PRN anxiety, # 14 tab, 2 Refill(s), Pharmacy: [place] [address], 63.35, kg, 10/20/23 11:06:00 EDT, Weight Dosing Start Date: 12/29/23 Stop Date: 02/09/24 Status: Ordered clonazePAM 1 mg oral tablet 1 mg = 1 tab, Oral, Daily, PRN other (see comment), as needed, # 28 tab, 2 Refill(s), Pharmacy: [place] [address], 65.15, kg, 01/27/24 11:27:00 EDT, Weight Dosing Start Date: 01/27/24 Stop Date: 04/20/24 Status: Ordered Concerta 18 mg/24 hr oral tablet, extended release 18 mg = 1 tab, Oral, every morning, Step 1 30 minutes before breakfast., # 7 tab, 0 Refill(s), Pharmacy: [place] [address], 65.15, kg, 01/27/24 11:27:00 EDT, Weight Dosing Start Date: 01/27/24 Stop Date: 02/03/24 Status: Ordered Concerta 27 mg/24 hr oral tablet, extended release 27 mg = 1 tab, Oral, every morning, Step 2 take 30 minutes before breakfast, # 21 tab, 0 Refill(s),Pharmacy: [place] [address], 65.15, kg, 01/27/24 11:27:00 EDT, Weight Dosing Start Date: 01/27/24 Stop Date: 02/17/24 Status: Ordered lamoTRIgine 100 mg oral tablet 100 mg = 1 tab, Oral, Daily, # 30 tab, 5 Refill(s), Pharmacy: [place] [id number], 65.15, kg, 01/27/24 11:27:00 EDT, Weight Dosing Start Date: 01/27/24 Stop Date: 07/25/24 Status: Ordered ONE TOUCH ULTRA TEST STRIPS ONE TOUCH ULTRA TEST STRIPS, Test sugars twice daily. E11.9 Diabetes., Supply, See instructions, # 200 EA, 3 Refill(s), Pharmacy: [facility] Start Date: 12/10/22 Status: Ordered Rybelsus 7 mg oral tablet 7 mg = 1 tab, Oral, Daily, take at least 30 minutes before first food, beverage, or other oral meds, # 90 tab, 3 Refill(s), Pharmacy: [facility], 63.35, kg, 10/20/23 11:06:00EDT, Weight Dosing Start Date: 10/20/23 Status: Ordered traZODone 100 mg oral tablet 100 mg = 1 tab, Oral, every night at bedtime, PRN as need for sleep, # 30 tab, 5 Refill(s), Pharmacy: [facility], 65.15, kg, 01/27/24 11:27:00 EDT, Weight Dosing Start Date: 01/27/24 Stop Date: 07/25/24 Status: Ordered Problem List Condition Confirmation Course [...] Screen Urine (Drug Screen Urine w/ Reflex) 01/27/24 Most recent to oldest [Reference Range]: 1 U Amph Scrn [Negative] Negative 1 (01/27/24 12:56 PM) U Benzodia Scrn [Negative] Negative (01/27/24 12:56 PM) U Cocaine Scrn [Negative] Negative (01/27/24 12:56 PM) U Cristina Scrn [Negative] Negative (01/27/24 12:56 PM) U Opiate Scrn [Negative] Negative (01/27/24 12:56 PM) U Oxy Scrn [Negative] Negative (01/27/24 12:56 PM) U PCP Scrn [Negative] Negative (01/27/24 12:56 PM) U THC Scr [Negative] Negative (01/27/24 12:56 PM) U Methadone Scr [Negative] Negative (01/27/24 12:56 PM) U Buprenorph Scr [Negative] Negative (01/27/24 12:56 PM) U mAMP Scr [Negative] Negative (01/27/24 12:56 PM) U TCA Scr [Negative] Negative (01/27/24 12:56 PM) 1Interpretive Data: These are unconfirmed screening [...] tobacco user T obacco Use:. Sex Female Sex Representation Female (finding) Patient Care team information Care Team Personnel Name: Lee Sheehan DO Position: PowerChart View Only Member Role: Informed Provider Address: [place] [facility] [address] Insurance Providers Guarantor name: TEJA LEDEZMA [facility] Information #: 1 Payer: [facility] Member Number: [id number] Policy Number: [facility] Information #: 2 Payer: [facility] Member Number: [id number] Policy Number: [id number]
--- OUTSIDE RECORDS SUMMARY | 2024-04-11 13:16 | XMS_ITS | Referral Summary ---
Author Organization [facility] Address [address] [place] [address] Care Team Providers Care Toe Lining Closer Name Role Phone Unavailable Primary Care Provider Unavailabl e Social History Tobacco Use Types Packs/Day Years Used Date Smoking Tobacco: Never Assessed Interpersonal Safety Answer Date Record ed Physically Hurt Never 10/04/2020 Verbally Threaten Not on file 10/04/2020 Comments Unknown Sex and Gender Information Value Date Recorded Sex Assigned at Not on file Legal Sex Female 17:14 EDT Gender Identity Not on file Sexual Orientation Not on file Plan of Treatment Not on file
--- OUTSIDE RECORDS SUMMARY | 2024-04-11 13:16 | XMS_ITS | Continuity of Care Document ---
Author Organization [facility] Address [address] [place] [address] Care Team Providers Care Salon Stylist Name Role Phone Ingrid NARANJOLee Primary Care Physician [phone] Encounter [facility] Date(s): 10/13/23 - 10/13/23 [facility] [address] [place] [address] Encounter Diagnosis Type II diabetes mellitus uncontrolled(Discharge Diagnosis) - 10/13/23 Encounter for medication management(Discharge Diagnosis) - 10/13/23 Anemia(Discharge Diagnosis) - 10/13/23 Discharge Disposition: Home or Self Care Attending Physician: Francisco Coker MD Admitting Physician: Francisco Coker MD Referring Physician: Francisco Coker MD Allergies, Adverse Reactions, Alerts No Known Medication [...] Daily, # 30 tab, 2 Refill(s), Pharmacy: [facility] [address], 162.56, cm, 10/08/21 15:48:00 EDT, Height, 64.4, kg, 07/23/23 14:10:00 EDT, Weight Dosing Start Date: 09/01/23 Stop Date: 11/30/23 Status: Ordered Abilify 5 mg oral tablet 5 mg = 1 tab, Oral, Daily, # 30 tab, 2 Refill(s), Pharmacy: [facility] [address], 162.56, cm, 10/08/21 15:48:00 EDT, Height, 64.4, kg, 07/23/23 14:10:00 EDT, Weight Dosing Start Date: 09/01/23 Stop Date: 11/30/23 Status: Ordered buPROPion 150 mg/24 hours (XL) oral tablet, extended release 150 mg 1 tab, Oral, every morning, # 30 tab, 2 Refill(s), Pharmacy: [facility] [address], 162.56, cm, 10/08/21 15:48:00 EDT, Height, 64.4, kg, 07/23/23 14:10:00 EDT, Weight Dosing Start Date: 09/01/23 Stop Date: 11/30/23 Status: Ordered buPROPion 300 mg/24 hours (XL) oral tablet, extended release 300 mg = 1 tab, Oral, every morning, # 30 tab, 2 Refill(s), Pharmacy: [facility] [address], 162.56, cm, 10/08/21 15:48:00 EDT, Height, 64.4, kg, 07/23/23 14:10:00 EDT, Weight Dosing Start Date: 09/01/23 Stop Date: 11/30/23 Status: Ordered citalopram 10 mg oral tablet 10 mg = 1 tab, Oral, Daily, take at noon, with citalopram 20 mg daily, # 30 tab, 2 Refill(s), Pharmacy: [facility] [address], 162.56, cm, 10/08/21 15:48:00 EDT, Height, 64.4, kg, 07/23/23 14:10:00 EDT, Weight Dosing Start Date: 09/01/23 Stop Date: 11/30/23 Status: Ordered citalopram 20 mg oral tablet 20 mg = 1 tab, Oral, every morning, # 30 tab, 2 Refill(s), Pharmacy: [facility] [address], 162.56, cm, 10/08/21 15:48:00 EDT, Height, 64.4, kg, 07/23/23 14:10:00 EDT, Weight Dosing Start Date: 09/01/23 Stop Date: 11/30/23 Status: Ordered clonazePAM 0.5 mg oral tablet 0.5 mg = 1 tab, Oral, Daily, PRN anxiety, # 14 tab, 1 Refill(s), Pharmacy: [facility] [address], 162.56, cm, 10/08/21 15:48:00 EDT, Height, 64.4, kg, 07/23/23 14:10:00 EDT, Weight Dosing Start Date: 09/09/23 Stop Date: 10/07/23 Status: Ordered clonazePAM 1 mg oral tablet 1 mg = 1 tab, Oral, Daily, PRN other (see comment), as needed, # 28 tab, 2 Refill(s), Pharmacy: [facility] [address], 162.56, cm, 10/08/21 15:48:00 EDT, Height, 64.4, kg, 07/23/23 14:10:00 EDT, Weight Dosing Start Date: 09/09/23 Stop Date: 12/02/23 Status: Ordered lamoTRIgine 100 mg oral tablet 100 mg = 1 tab, Oral, Daily, # 30 tab, 2 Refill(s), Pharmacy: [facility] [id number], 162.56, cm, 10/08/21 15:48:00 EDT, Height, 64.4, kg, 07/23/23 14:10:00 EDT, Weight Dosing Start Date: 09/01/23 Stop Date: 11/30/23 Status: Ordered ONE TOUCH ULTRA TEST STRIPS ONE TOUCH ULTRA TEST STRIPS, Test sugars twice daily. E11.9 Diabetes., Supply, See instructions, # 200 EA, 3 Refill(s), Pharmacy: [facility] Start Date: 12/10/22 Status: Ordered Rybelsus 7 mg oral tablet 7 mg = 1 tab, Oral, Daily, take at least 30 minutes before first food, beverage, or other oral meds, # 90 tab, 3 Refill(s), Pharmacy: [facility], 162.56, cm, 10/08/21 15:48:00 EDT, Height, 64.4, kg, 07/23/23 14:10:00 EDT, Weight Dosing Start Date: 08/18/23 Status: Ordered traZODone 100 mg oral tablet 100 mg = 1 tab, Oral, every night at bedtime, PRN as need for sleep, # 30 tab, 2 Refill(s), Pharmacy: [facility], 162.56, cm, 10/08/21 15:48:00 EDT, Height, 64.4, kg, 07/23/23 14:10:00 EDT, Weight Dosing Start Date: 09/01/23 Stop Date: 11/30/23 Status: Ordered Problem List Condition Confirmation Course [...] List Name Date Comprehensive Metabolic Panel (CMP) 10/12 Hemoglobin A1c 10/13/23 Most recent to oldest [Reference Range]: 1 BUN [7-18 mg/dL] 9 mg/dL (10/13/23 12:00 PM) Glucose Level [74-106 mg/dL] 99 mg/dL (10/13/23 12:00 PM) Potassium Level [3.5-5.1 mmol/L] 4.5 mmo l/L (10/13/23 12:00 PM) AST [15-37 unit/L] 12 unit/L *LOW* (10/13/23:00 PM) ALT [14-59 unit/L] 21 unit/L (10/13/23 12:00 PM) Sodium Level [136-145 mmol/L] 140 mmol/L (10/13/23 12:00 PM) Calcium Level [8.5-10.1 mg/dL] 8.9 mg/dL (10/13/23 12:00 PM) Albumin Level [3.4-5.0 g/dL] 3.8 g/dL (10/13/23:00 PM) Protein Total [6.4-8.2 g/dL] 6.8 g/dL (10/13/23 12:00 PM) Bilirubin Total [0.2-1.0 mg/dL] 0.3 mg/d L (10/13/23:00 PM) Alk Phos [46-146 unit/L] 70 unit/L (10/13/23:00 PM) CO2 [21-32 mmol/L] 30 mmol/L (10/13/23:00 PM) eGFR Non-AA [>=60] 83 (10/13/23 12:00 PM) eGFR AA [>=60] 83 (10/13/23 12:00 PM) Hemoglobin A1c [4.0-5.6 %] 4.9 % 1 (10/13/23:00 PM) Chloride Level [98-107 mmol/L] 104 mmol/ L (10/13/23 12:00 PM) Creatinine Level [0.55-1.02 mg/dL] 0.82 mg/dL (10/13/23 12:00 PM) 1Interpretive Data: New test method effective 05-26-23. Establishment of new HA1c baseline is recommended. The following A1c interpretive data reflect the 2017 [place] [employer] (ADA) guidelinesand will be reported with each A1c result: Normal: <5.7% Prediabetes: 5.7 - 6.4% Diagnostic for diabetes (if confirmed): ???6.5% Social History Social History Type Response Tobacco Never tobacco user T obacco Use:. Sex Female Patient Care team information Care Team Personnel Name: Ingrid [facility] DO Position: PowerChart View Only Member Role: Informed Provider Address: Address: [facility] [id number] [place] [address]
--- OUTSIDE RECORDS SUMMARY | 2024-04-11 13:16 | XMS_ITS | Continuity of Care Document ---
Author Organization [facility] Address [address] [place] [address] Care Team Providers Care Rn Practitioner Name Role Phone Lee Quintero Primary Care Physician [facility] [address] [place] [address] Encounter Diagnosis Type II diabetes mellitus uncontrolled(Discharge Diagnosis) - 09/23/22 Discharge Disposition: Home or Self Care Attending Physician: Lee Quintero DO Admitting Physician: Lee Quintero DO Referring Physician: Lee Quintero DO Allergies, Adverse Reactions, Alerts No Known Medication Allergies Assessment and Plan Future Appointments Immunizations Given and Recorded Vaccine Date Status [...] lot#[id number] 3Result Comment: Verified by RS and ANDERSON. Patient tolerated injection; bandaid applied. 4Result Comment: pt. tolerated vaccine well 5Result Comment: pt. tolerated vaccine well Medications ARIPiprazole 20 mg oral tablet 20 mg = 1 tab, Oral, every morning, # 30 tab, 2 Refill(s), Pharmacy: [facility] [id number] Start Date: 04/07/22 Stop Date: 07/06/22 Status: Ordered buPROPion 150 mg/24 hours (XL) oral tablet, extended release 150 mg 1 tab, Oral, every morning, # 30 tab, 0 Refill(s), Pharmacy: [facility] [id number] Start Date: 09/16/22 Stop Date: 10/16/22 Status: Ordered buPROPion 300 mg/24 hours (XL) oral tablet, extended release 300 mg = 1 tab, Oral, every morning, # 30 tab, 2 Refill(s), Pharmacy: [id number] Start Date: 08/29/22 Stop Date: 11/27/22 Status: Ordered citalopram 20 mg oral tablet 20 mg = 1 tab, Oral, every morning, # 30 tab, 2 Refill(s), Pharmacy: [facility] [id number] Start Date: 08/11/22 Stop Date: 11/09/22 Status: Ordered clonazePAM 1 mg oral tablet 1 mg = 1 tab, Oral, Daily, PRN other (see comment), as needed, # 28 tab, 2 Refill(s), Pharmacy: [id number] Start Date: 07/14/22 Stop Date: 10/06/22 Status: Ordered FeroSul 325 mg (65 mg elemental iron) oral tablet 0 Refill(s) Start Date: 07/18/22 Status: Ordered lamoTRIgine 100 mg oral tablet 100 mg = 1 tab, Oral, Daily, # 30 tab, 2 Refill(s), Pharmacy: [facility] [id number] Start Date: 08/29/22 Stop Date: 11/27/22 Status: Ordered Misc Prescription See Instructions, [place] 3 with EPA/DHA 500 mg daily per Rafaela Cai DNP, 0 Refill(s) Start Date: 04/02/22 Status: Ordered Rybelsus 3 mg oral tablet 1 tab, Oral, Daily, OR MEDICATIONS OF DAY., # 30 tab, 0 Refill(s), Pharmacy: [facility] [id number] Start Date: 09/01/22 Status: Ordered traZODone 100 mg oral tablet 100 mg = 1 tab, Oral, every night at bedtime, PRN as need for sleep, # 30 tab, 2 Refill(s), Pharmacy: [facility] Start Date: 08/29/22 Stop Date: 11/27/22 Status: Ordered Problem List Condition Confirmation Course [...] 07/21/19 Active Results Laboratory List Name Date Hemoglobin A1c 09/23/22 Most recent to oldest [Reference Range]: 1 Hemoglobin A1c [4.0-6.0 %] 5.1 % (09/23/22 10:00 AM) Social History Social History Type Response Tobacco Never tobacco user T obacco Use:. Sex Female Patient Care team information Care Team Personnel Name: Lee Quintero DO Position: Physician Member Role: Primary Care Physician Address: Address: [facility] [id number] [place] [address]
--- OUTSIDE RECORDS SUMMARY | 2024-04-11 13:16 | XMS_ITS | Encounter Summary ---
Author Organization [facility] Address [address] [place] [address] Care Team Providers Care Medical Historian Name Role Phone Unavailable Primary Care Provider Unavailabl e Encounter Details Date Type Department Care Team (Late st Contact Info) Description 10/03/2020 Lab Requisition [facility] Pathology & Laboratory Medicine - [facility] [address] [place] [address] Outr Resulting Lab, Provider Social History Tobacco [...] Procedure Name Priority Date/Time Associated Diagnosis Comments FECAL BACTERIAL PATHOGENS BY PCR Routine 10/03/2020 15:00 EDT OVA/PARASITE EXAM Routine 10/03/2020 15: 00 EDT documented in this encounter Results * FECAL BACTERIAL PATHOGENS BY PCR (10/03/2020 15:00 EDT) Salmonella PCR Negative Negative 10/04/2020 11:32 EDT [facility] Shigella/Enteroin vasive E. coli Negative Negative 10/04/2020 11:32 EDT [facility] HN LAB CAMPYLOBACTER PCR Negative Negative 10/04/2020 11:32 EDT [facility] Shiga Toxin PCR Negative Negative 11:32 EDT [facility] Feces SPECIMEN FROM RECTUM / Unknown Stool Collect / Unknown 10/03/2020 15:00 EDT 10/03/2020 22:08 EDT us Provider Outr Resulting Lab MICROBIOLOGY - GENER AL ORDERABLES Final Result Performing Organization Address [facility] Co de Phone Number [facility] [address] [place] [address] * OVA/PARASITE EXAM (10/03/2020 15:00 EDT) Parasite No ova and parasites seen. 10/04/2020 12:16 EDT [facility] Feces SPECIMEN FROM RECTUM / Unknown Stool Collect / Unknown 10/03/2020 15:00 EDT 10/03/2020 22:08 EDT Narrative [facility] - 10/04/2020 12:16 EDT (If Cryptosporidium, Cyclospora, or Microsporidium are suspected, specific tests must be requested.) Single negative specimen does not rule out the possibility of a parasitic infection. us Provider Outr Resulting Lab MICROBIOLOGY - GENER AL ORDERABLES Final Result Performing Organization Address City/[facility]/ZIP Co de Phone Number [facility] [address] [place] [address] documented in this encounter Visit Diagnoses Not on filedocumented in this encounter
--- OUTSIDE RECORDS SUMMARY | 2024-04-11 13:16 | XMS_ITS | Clinical Summary ---
Author Organization [facility] Address [address] [place] [address] Care Team Providers Care Inspector Agricultural Commodities Name Role Phone Unavailable Primary Care Provider [...] Orientation Not on file Plan of Treatment Health Maintenance Due Date Last Done Comments Hepatitis C Screen 1965 Hepatitis B Vaccine (1 of 3 - 19+ 3-dose series) 08/05 COVID-19 Vaccine ( season) 2023
== END 2024-04-11 13:13 | disposition home or self-care (01) ==
LOC: LBO 13:13
PROVIDERS: PCP Nurse Practitioner Family; Visit Provider Nurse Practitioner Family
DX: F41.0 Panic disorder [episodic paroxysmal anxiety] (principal); E11.65 Type 2 diabetes mellitus with hyperglycemia; D64.9 Anemia, unspecified
CPT/HCPCS: 36415; 80053; 83036; 85025

== ENCOUNTER 2024-10-07 10:04 | Outpatient (CLI) | payer OTHER, SELFPAY ==
[2024-10-07 09:14] LABS: Abs Immature Grans 0.02 10^3/uL (0.0-0.06); Absolute Basophil Count 0.04 10^3/uL (0.0-0.2); Absolute Eosinophil Count 0.23 10^3/uL (0.0-0.7); Absolute Lymphocyte Count 2.01 10^3/uL (1.2-3.4); Absolute Monocyte Count 0.36 10^3/uL (0.1-0.8); Absolute Neutrophil Count 4.31 10^3/uL (1.2-6.7); Basophils % 0.6 %; Eosinophils % 3.3 %; HCT 37.9 % (36.0-46.0); HGB 12.7 g/dL (11.2-15.7); Immature Grans % 0.3 %; Lymphocytes % 28.8 %; MCH 28.8 pg (27.0-33.0); MCHC 33.5 % (32.0-36.0); MCV 86 fL (80-95); MPV 10.3 fL (8.0-11.0); Monocytes % 5.2 %; Neutrophils % 61.8 %; Platelet Count 211 10^3/uL (130-400); RBC 4.41 10^6/uL (3.93-5.22); RDW 12.8 % (11.7-14.6); RDW-SD 39.9 fL; WBC 6.97 10^3/uL (4.4-10.8)
[2024-10-07 09:44] LABS: Hemoglobin A1C 6.2 % (<5.7)
[2024-10-07 09:46] LABS: ALT 30 U/L (14-59); AST 14 U/L (15-37); Albumin 4.1 g/dL (3.4-5.0); Alkaline Phosphatase 77 U/L (46-116); BUN 8 mg/dL (7-18); Bilirubin, Total 0.3 mg/dL (0.2-1.0); CREATININE 1.2 mg/dL (0.55-1.02); Calcium 9.2 mg/dL (8.5-10.1); Calculated LDL 148 mg/dL (<100); Chloride 103 mmol/L (98-107); Cholesterol 213 mg/dL (<200); Estimated GFR 52.47 (mL/min/1.73m2); Glucose 125 mg/dL (74-106); HDL Cholesterol 48 mg/dL (>or=50); Potassium 4.2 mmol/L (3.5-5.1); Sodium 141 mmol/L (136-145); Total Protein 7.4 g/dL (6.4-8.2); Triglyceride 89 mg/dL (<150)
[2024-10-13 13:24] LABS: 25-Hydroxy D Total 25 ng/mL; 25-Hydroxy D2 <4.0 ng/mL; 25-Hydroxy D3 25 ng/mL
== END 2024-10-07 10:05 | disposition home or self-care (01) ==
LOC: LBO 10:04
PROVIDERS: PCP Nurse Practitioner Family; Visit Provider Nurse Practitioner Family
DX: E11.65 Type 2 diabetes mellitus with hyperglycemia (principal); Z23 Encounter for immunization; Z79.899 Other long term (current) drug therapy
CPT/HCPCS: 36415; 80053; 80061; 82306; 83036; 85025

== ENCOUNTER 2024-10-31 02:49 | Outpatient (CLI) | payer OTHER, SELFPAY ==
--- NOTE | 2024-10-31 | DI.MAMMO_ITS ---
Exam(s) MAMMO SCREENING EXAM: MAMMO SCREENING CLINICAL HISTORY: Screening, Z12.39. TECHNIQUE: Bilateral full field digital CC and MLO mammographic images were obtained with 3D tomosynthesis and utilizing computer aided detection (CAD). COMPARISON: Prior mammogram of December 2020 was reviewed. FINDINGS: No new left breast findings. In the posterior aspect of the right breast there is an asymmetric density the nodule which was not evident on the prior 2020 mammogram which did not reach back as far into the breast as the present mammogram. It is only seen on CC view and exhibits a notch and is probably a benign intramammary lymph node. There are no spiculated masses nor malignant appearing microcalcification groups. There is no significant architectural distortion nor skin thickening-retraction. IMPRESSION: 1. No radiographic evidence of malignancy in left breast. 2. Right breast posteriorly located nodular density which is probably benign intramammary lymph node. Although it was not evident on the prior 2020 mammogram (which is the only prior mammogram in our PACS), this is probably because the prior mammogram did not reach as far back as did the present mammo gram. Recommend repeat right breast mammogram in 6 months \ BI-RADS Category 3 - 6 month - Probably Benign Finding: Recommend follow-up mammography in 6 months Breast Density - Category B - There are scattered areas of fibroglandular density. Breast density Category C or D implies that the patient has dense breast tissue. Dense breast tissue can make it harder to find cancer on a mammogram. Dense breast tissue is also associated with an increased risk of breast cancer. This information about the result of the mammogram report was provided to the patient to raise their awareness. Use this report when you speak with the patient about their risks for breast cancer, which includes their family history. At that time, you may recommend additional screening tests (Ultrasound or MRI) as these tests may add significant information. A negative radiographic report should not delay biopsy if a dominant or clinically suspicious mass is present. Up to ten percent of cancers are not identified on mammography. A negative report may reinforce clinical impression. Adenosis and dense breasts may obscure an underlying neoplasm. False positive reports average 6 to 10%. Patient will receive a letter notifying them of these results.
== END 2024-10-31 03:09 ==
PROVIDERS: PCP Nurse Practitioner Family; Visit Provider Nurse Practitioner Family
DX: Z12.31 Encounter for screening mammogram for malignant neoplasm of breast (principal); R92.323 Mammographic fibroglandular density, bilateral breasts
CPT/HCPCS: 77063; 77067